=== PATIENT | male | born 1955 | race Caucasian/White ===

== ENCOUNTER → 2018-11-19 10:03 | Outpatient (CLI) | payer OTHER | END | disposition home or self-care (01) | LOC: D.RAD 10:03 | DX: M13.842 Other specified arthritis, left hand (principal) ==

== ENCOUNTER 2019-07-11 11:24 | Emergency (ER) | payer OTHER ==
[~2019-07-11] VITALS: Ht 180.3 cm; Wt 86.4 kg
[2019-07-11 11:29] VITALS: Ht 180.3 cm; Wt 86.4 kg
[2019-07-11] MEDS ORDERED: HYDROCODONE-IB1 EAC3 PO (12:24)
[2019-07-11 13:45] VITALS: BP 156/89
== END 2019-07-11 13:46 | disposition home or self-care (01) ==
LOC: D.ER 11:24
DX: S22.32XA Fracture of one rib, left side, initial encounter for closed fracture (principal); W18.30XA Fall on same level, unspecified, initial encounter; Y93.89 Activity, other specified; Y92.89 Other specified places as the place of occurrence of the external cause